=== PATIENT | male | born 1990 | race Caucasian/White ===

== ENCOUNTER 2018-10-22 02:00 | Emergency (ER) | payer OTHER ==
[~2018-10-22] VITALS: Ht 170.2 cm; Wt 58.5 kg
[2018-10-22 02:06] VITALS: BP 135/78
[2018-10-22] MEDS ORDERED: HYDROCODONE/APAP 5/325MG 1 EACH TABLET ONE (02:28)
[2018-10-22] MEDS ORDERED: AMOX/CLAVULANATE 875 MG TABLET ONE (02:29)
[2018-10-22] MEDS ORDERED: AMOX/CLAVULANATE 875 MG TABLET PO ONE (02:30)
[2018-10-22] MEDS ORDERED: HYDROCODONE/APAP 5/325MG 1 EACH TABLET PO ONE (02:30)
== END 2018-10-22 02:51 | disposition home or self-care (01) ==
LOC: ER 02:00
DX: K02.9 Dental caries, unspecified (principal); R21 Rash and other nonspecific skin eruption; J45.909 Unspecified asthma, uncomplicated